=== PATIENT | male | born 1955 | race Caucasian/White ===

== ENCOUNTER 2020-07-30 13:55 | Inpatient (IN) | payer BC ==
[2020-07-30] MEDS ORDERED: HEPARIN SODIUM 1,000 UN/ML (10ML VL) IV ONE ×2 (13:59→14:31)
[2020-07-30] MEDS ORDERED: ATORVASTATIN 80 MG TAB PO STA (14:00)
--- NOTE | 2020-07-30 14:01 | ED ---
Chest Pain HPI - General Stated Complaint: STEMI - History of Present Illness Initial Comments: Michele is a 65yo M who presents to the emergency department today by ambulance for evaluation of chest pain. Patient reports that he was shooting shotgun and then walked away and was resting he began feeling short of breath, sweaty with severe pain in his chest. Ambulance was called, patient received aspirin and nitro with some improvement in his pain. Pre-hospital EKG was consistent with STEMI. He has no history of any cardiac problems. He does have high blood pressure. His primary care is an urgent care in [place]. - Related Data Home Medications Medication Instructions Recorded Confirmed Cholecalciferol [Vitamin D3 (25 50 mcg PO DAILY 07/30/20 07/30/20 Mcg = 1000 Iu)] Levothyroxine Sodium [Synthroid] 112 mcg PO DAILY 07/30/20 07/30/20 Lisinopril [Prinivil] 10 mg PO DAILY 07/30/20 07/30/20 Allergies Allergy/AdvReac Type Severity Reaction Status Date / Time No Known Allergies Allergy Verified 07/30/20 14:25 Review of Systems ROS Statement: Those systems with pertinent positive or pertinent negative responses have been documented in the HPI. ROS Other: All systems not noted in ROS Statement are negative. EKG Findings - EKG Comments: EKG Findings:: EKG is obtained to complaint chest pain, EKG obtained at 1358, rate is 72 rhythm is sinus there is a normal axis, normal intervals, OK 180, QRS 98, QTC 411. There are ST elevations in leads 2, [address] depression in aVL, EKG consistent with STEMI General Exam - General Exam Comments Initial Comments: Physical Exam GENERAL: Pale, diaphoretic, appears uncomfortable HENT: Normocephalic, Atraumatic. EYES: PERRL, EOMI PULMONARY: Unlabored respirations. No audible rales rhonchi or wheezing was noted. CARDIOVASCULAR: RRR Pedal pulses palpable ABDOMEN: Soft and nontender with normal bowel sounds. SKIN: Skin is clear with no lesions or rashes and otherwise unremarkable. : Deferred NEUROLOGIC: Patient is alert and oriented x3. Moving all extremities spontaneously MUSCULOSKELETAL: Normal extremities with adequate strength and full range of motion. No lower extremity swelling or edema. No calf tenderness. PSYCHIATRIC: Normal psychiatric evaluation. Course Vital Signs 07/30/20 07/30/2021 13:56 13:59 14:06 Temperature 97.4 F L Pulse Rate 75 Pulse Rate [ 78 Ios Programmer ] Respiratory 18 18 Rate Blood Pressure 126/99 O2 Sat by Pulse 98 Oximetry Chest Pain MDM - MDM Prehospital EKG was faxed to us Prehospital EKG with ST elevations in 23 aVF depression and aVL and V2 this is concerning for STEMI STEMI activation was called prior to patient's arrival she care was discussed with Dr. Bryant who is in route to the hospital with plan for medical laboratory scientist intervention Arrival the patient appeared pale and diaphoretic he appeared quite uncomfortable repeat EKG again confirms STEMI Dr. Bryant and agreement plan to take patient medical laboratory scientist She care was discussed with on-call medicine team [facility] who accepted admission Disposition Clinical Impression: STEMI (ST elevation myocardial infarction) Disposition: ADMITTED IP TO THIS HOSP Condition: Serious Is patient prescribed a controlled substance at d/c from ED?: No
[2020-07-30 14:11] LABS: Basophils # (A) 0.1 k/uL (0-0.2); Basophils % (A) 1 %; Eosinophils # (A) 0.1 k/uL (0-0.7); Eosinophils % (A) 1 %; HCT 49.8 % (39.0-53.0); HGB 17.7 gm/dL (13.0-17.5); Lymphocytes # (A) 1.8 k/uL (1.0-4.8); Lymphocytes % (A) 19 %; MCHC 35.6 g/dL (31.0-37.0); MCV 84.3 fL (80.0-100.0); Mean Platelet Volume 7.8; Monocytes # (A) 0.8 k/uL (0-1.0); Monocytes % (A) 8 %; Neutrophils # (A) 6.7 k/uL (1.3-7.7); Neutrophils % (A) 69 %; Platelet Count 311 k/uL (150-450); RBC 5.91 m/uL (4.30-5.90); RDW 12.8 % (11.5-15.5); WBC 9.7 k/uL (3.8-10.6)
[2020-07-30] MEDS ORDERED: NALOXONE 0.4 MG/ML 1 ML VIAL IV PRN (14:11)
[2020-07-30] MEDS ORDERED: HYDROmorphone 1 MG/ML 1 ML SYRINGE IVP STA (14:11)
--- NOTE | 2020-07-30 14:15 | XR ---
EXAMINATION TYPE: XR chest 1V portable DATE OF EXAM: 07/30/2020 COMPARISON: NONE HISTORY: Chest pain TECHNIQUE: FINDINGS: There is no heart failure nor confluent pneumonic infiltrate. Costophrenic angles are clear . Bony thorax is intact. IMPRESSION: No active cardiopulmonary disease.
[2020-07-30] MEDS ORDERED: SODIUM CHLORIDE 0.9% 1,000 ML IV ONE (14:16)
[2020-07-30 14:20] LABS: Albumin 4.4 g/dL (3.5-5.0); Calcium 10.3 mg/dL (8.4-10.2); Potassium 3.9 mmol/L (3.5-5.1); Total Bilirubin 0.9 mg/dL (0.2-1.3); Total Protein 7.2 g/dL (6.3-8.2)
[2020-07-30] MEDS ORDERED: VERAPAMIL 2.5 MG/ML 2 ML AMP ONE (14:21)
[2020-07-30] MEDS ORDERED: LIDOCAINE 1% INJ 10MG/ML (20 ML MDV) ONE (14:21)
[2020-07-30] MEDS ORDERED: LIDOCAINE 1% INJ 10MG/ML (20 ML MDV) SQ ONE (14:25)
[2020-07-30] MEDS ORDERED: VERAPAMIL SYRINGE (5 MG/10 ML) INTRAARTER ONE (14:28)
[2020-07-30] MEDS ORDERED: HEPARIN SODIUM 1,000 UN/ML (10ML VL) ONE (14:31)
[2020-07-30] MEDS ORDERED: TICAGRELOR 90 MG TAB ONE (14:31)
[2020-07-30] MEDS ORDERED: TICAGRELOR 90 MG TAB PO ONE (14:33)
[2020-07-30 14:40] LABS: INR 1.1 (<1.2); Partial Thromboplastin Time 22.8 sec (22.0-30.0); Prothrombin Time 11.8 sec (9.0-12.0)
[2020-07-30] MEDS ORDERED: MIDAZOLAM 2 MG/2 ML VIAL IV ONE (14:43)
[2020-07-30] MEDS ORDERED: IOPAMIDOL-370 125ML BTL INJ ONE (14:52)
[2020-07-30] MEDS ORDERED: IOPAMIDOL-370 100ML BTL INJ ONE ×2 (15:10)
[2020-07-30] MEDS ORDERED: RX INFO: IV CONTRAST WAS GIVEN 1 EACH MISC MISCELLANE PRN (15:29)
[2020-07-30] MEDS ORDERED: ATROPINE SULFATE 0.1 MG/ML 10ML SYRINGE IV PRN (15:29)
[2020-07-30] MEDS ORDERED: NITROGLYCERIN SL TABS 0.4 MG TAB SUBLINGUAL PRN (15:29)
[2020-07-30] MEDS ORDERED: MAG HYDROX/AL HYDROX/SIMETH 30 ML CUP PO PRN (15:29)
[2020-07-30] MEDS ORDERED: SODIUM CHLORIDE 0.9% 1,000 ML IV SCH (15:30)
[2020-07-30 16:10] LABS: Glucose,Whole Blood 116 mg/dL (75-99)
--- NOTE | 2020-07-30 19:01 | CC ---
CARDIAC CATHETERIZATION REPORT Mr. Sahu 65-year-old male with no prior documented history of coronary artery disease, history of hypertension who presented to the emergency room with an acute episode of chest discomfort with ST-segment elevation involving the inferior leads. In view of that, recommendation was made regarding cardiac catheterization. The procedure as well as the risks and the complications were discussed with the patient who is in full understanding and agreement. PROCEDURE DETAILS: Patient was brought to the cathead operator in the semi-sedated state after receiving fentanyl and Benadryl and achieving moderate conscious sedated state. Using Xylocaine anesthesia and Seldinger technique, a 6-Greek sheath was introduced in the right radial artery. Selective right coronary angiography performed using 6-Greek FR4 guiding catheter. After obtaining images of the right coronary artery and performing angioplasty and stenting, images of the left coronary system were performed using 5- Greek 3.5 bend left Esme catheters. Multiple views of the coronary arteries including hemiaxial views were obtained. Following that, a 5-Greek tight pigtail catheter was introduced into the left ventricle and pressures were calculated. Following that, catheter and sheath were removed. Hemostasis was obtained with deployment of TR band. There was no immediate complication. Patient is returned to his room in stable condition. FINDING: LEFT MAIN: This is a short size vessel, bifurcating into left circumflex, left anterior descending artery, left main artery has no evidence of high-grade stenosis. LEFT ANTERIOR DESCENDING ARTERY: This is a large-sized vessel reaching to the apex. Tapers down distal third, giving rise to 2 diagonal branches. The second one is large in caliber. The left anterior descending artery at the takeoff of the first obtuse marginal branch has a 30 to 40% plaque. After the takeoff of the second diagonal branch has an 80% lesion. The rest of the vessel has no high-grade stenosis. LEFT CIRCUMFLEX: This is a nondominant vessel, large in caliber giving rise to 3 obtuse marginal branches. The 3rd is the largest. After the takeoff of the second obtuse marginal branch, there is a 70% to 80% plaque. The rest of the vessel has intimal disease without any evidence of high-grade stenosis. RIGHT CORONARY ARTERY: This vessel is totally occluded in the proximal mid segment without any evidence of antegrade flow. LEFT VENTRICULOGRAM is not performed. HEMODYNAMICS: There was no gradient across the aortic valve. The left ventricular end-diastolic pressure was 14-18 mmHg. CONCLUSION: 1. Acutely occluded proximal mid segment of the RCA. 2. Significant disease in the mid LAD. 3. Significant disease in the mid left circumflex. RECOMMENDATION: In view of findings and anatomy, I recommend proceeding with angioplasty and stenting of the RCA. The procedure as well as the risks and the complications were discussed with the patient who is in full understanding and agreement. MMMICKEY / MARVINN: [id number] /
--- NOTE | 2020-07-30 19:22 | CONS ---
CONSULTATION Mr. Sahu is a 65-year-old male with no prior documented history of coronary artery disease, history of hypertension who presented to the emergency room with symptoms of chest discomfort. 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 In the emergency room, he continued to have discomfort. He denies any prior similar symptoms. He has no prior history of cardiac disease. He has a history of hypothyroidism and hypertension. He is nondiabetic, nonsmoker. REVIEW OF SYSTEMS: RESPIRATORY system: He denies any recent history of asthma, emphysema or bronchitis. No wheezing. GI system: No recent GI bleeding. No peptic ulcer disease. : No dysuria or hematuria. NERVOUS SYSTEM: No stroke or seizure. PHYSICAL EXAMINATION: He is a 65-year-old male, alert, oriented, in mild discomfort. Heart rate in the 70s. HEAD: Normocephalic. Eyes: Sclerae anicteric. NECK: Good upstroke. No bruit. No jugular venous distention. LUNGS: Clear to auscultation. HEART: Regular rate and rhythm. S1, S2. No S3. No S4. No murmur or rub. ABDOMEN: Soft, nontender. Positive bowel sounds. No organomegaly. EXTREMITIES: No edema. Intact pulses. EKG revealed a sinus mechanism with ST-segment elevation in the inferior leads, 2, 3, and AVF and mild elevation in the anterior precordial leads with ST depression in 1 and aVL. IMPRESSION: 1. Acute inferior myocardial infarction with possible RV infarct. 2. History of hypertension. 3. History of hypothyroidism. RECOMMENDATION: I recommend proceeding with coronary angiography to assess his status and guide his treatment. The rationale behind the procedure as well as risks and complications were discussed with the patient who is in full understanding and agreement. Thank you for this consult. We will follow with you. MMODL / IJN: [id number] /
--- NOTE | 2020-07-30 19:34 | PTCA ---
PERCUTANEOUSTRANS CORORONARY ANGIOGRAPHY Mr. Sahu is a 65-year-old male who presented with an acute inferior myocardial infarction, underwent cardiac catheterization was found to have a totally occluded proximal mid segment of the RCA. In view of that, recommendation made regarding angioplasty and stenting. The procedure as well as the risks and the complications were discussed with the patient who is in full understanding and agreement. PROCEDURE DESCRIPTION: Using the 6-Bur[place]ian FR4 guiding catheter a 0.014 balanced medium weight J-wire with the help of a straight FineCross be used to cross the total occlusion, positioned distally. Following that, the FineCross microcatheter was removed and a 2.5 x 12 mm Trek balloon was advanced and multiple inflations at a maximum of 10 atmospheres were done. Following that, the balloon was removed and a 3.0 x 18 mm Xience Audra stent was deployed and was dilated at 16 atmospheres. Following that, the balloon was removed and a 3.5 x 12 mm Xience Audra stent was deployed proximal to the first one and was dilated at 16 atmospheres. Following that, the balloon was removed and a 3.5 x 12 mm Xience Audra stent was advanced, deployed proximal to the 2nd stent and postdilated to 16 atmospheres. Following that, the balloon was removed and a 3.5 x 15 mm NC Trek balloon was advanced and inflations in the stents were performed at a maximum of 14 atmospheres. After the last inflation, after appropriate wait, the balloon and the guidewire were withdrawn back in the guiding catheter. Images were obtained and repeated. Those images reveal stable successful stenting. At that point, the guiding catheter, the balloon and the guidewire were removed. Images of the left coronary system were performed. Following that, catheter and sheath were removed. Hemostasis was obtained with deployment of TR band. There was no immediate complication. Patient is returned to his room in stable condition. Of note, the patient had resolution of his chest discomfort at the end of the procedure as well as improvement in his EKG changes. He received an additional 3000 units of intravenous heparin, and his ACT was monitored and received an oral loading dose of Brilinta. RESULTS: Successful stenting of the proximal mid segment of the RCA with reduction of stenosis from 100% to 0%. RECOMMENDATION: Patient be continued on aspirin, Brilinta, beta blockers, checo inhibitors and statin. He will be reevaluated at a later time regarding the need to undergo revascularization of his LAD and his left circumflex. Those findings and recommendations were discussed with the patient and his family and they are in full understanding and agreement. EZEQUIEL / DRE: [id number] /
[2020-07-30] MEDS ORDERED: POTASSIUM CHLORIDE ER 20 MEQ TAB.ER PO STA (20:59)
[2020-07-30] MEDS: TICAGRELOR 90 MG TAB PO SCH (21:39)
[2020-07-30] MEDS: METOPROLOL TARTRATE 25 MG TAB PO SCH (21:39)
[2020-07-30] MEDS: ATORVASTATIN 80 MG TAB PO SCH (21:39)
--- NOTE | 2020-07-30 23:32 | P.HPIM ---
History of Present Illness H&P Date: 07/30/20 Chief Complaint: Chest Pain Patient is a 65-year-old male with a known history of hypertension, hypothyroidism, Pericarditis 1999 presents ER by EMS with complaints of chest p ain. 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 Patient states that he became very diaphoretic and chest pain got worse. Bystander asked him if he is doing okay and EMS was called. Patient also felt numbness of the left arm 10 minutes after. EMS EKG showed consistent with STEMI. Patient was immediately transfer red to ER. Denies any complaints of exertional dyspnea recently. No leg swelling. No palpitations. No headache or dizziness or lightheadedness. Patient was initially taken to cardiac catheterization and underwent stenting of the proximal mid segment of the RCA with resolution of stenosis. Currently patient is being monitored in ICU. Laboratory data showed WBC 9.7 hemoglobin 17.7 platelets 311 INR 1.1 sodium 139 potassium 3.9 bicarb is 22 BUN 22 creatinine 1.13 and calcium 10.3 troponin 0 0. 012 and 7.88 and 26.0 COVID-19 PCR not detected. EKG showed ST elevation in the inferior leads II, III and aVF. Review of Systems Constitutional: Patient denies any fever or chills . No generalized weakness or weight loss. Abdomen: Patient denied nausea vomiting and diarrhea and abdominal pain. Cardiovascular: Patient denies any chest pain or short of breath no pal pitations. Respiratory: patient denied any cough or sputum production. No shortness of breath Neurologic: Patient denied any numbness or tingling headache. Musculoskeletal: Patient denies any complaints of joint swelling or deformity. Skin: Negative Psychiatric: Negative Endocrine: No heat or cold intolerance. No recent weight gain. Genitourinary: No dysuria or hematuria. All other 14 point ROS negative except the above Past Medical History Past Medical History: Thyroid Disorder Additional Past Medical History / Comment(s): pericarditis 1999 History of Any Multi-Drug Resistant Organisms: None Reported Past Psychological History: No Psychological Hx Reported Smoking Status: Never smoker Past Alcohol Use History: None Reported Past Drug Use History: None Reported - Past Family History Mother Family Medical History: Congestive Heart Failure (CHF) Medications and Allergies Home Medications Medication Instructions Recorded Confirmed Type Cholecalciferol [Vitamin D3 (25 50 mcg PO DAILY 07/30/20 07/30/20 History Mcg = 1000 Iu)] Levothyroxine Sodium [Synthroid] 112 mcg PO DAILY 07/30/20 07/30/20 History Lisinopril [Prinivil] 10 mg PO DAILY 07/30/20 07/30/20 History Allergies Allergy/AdvReac Type Severity Reaction Status Date / Time No Known Allergies Allergy Verified 07/30/20 14:25 Physical Exam Vitals: Vital Signs Temp Pulse Pulse Resp BP Pulse Ox 07/30/20 14:12 98.3 F 72 18 128/88 98 07/30/20 14:06 18 07/30/20 13:59 78 07/30/20 13:56 97.4 F L 75 18 126/99 98 Intake and Output 07/30/20 07/30/20 07/30/20 06:59 14:59 22:59 Intake Total 350 Balance 350 Intake: IV 350 Other: Weight 101.151 kg PHYSICAL EXAMINATION: Patient is lying in the bed comfortably, no acute distress, awake alert and oriented.. HEENT: Normocephalic. Neck is supple. Pupils reactive. Nostrils clear. Oral cavity is moist. Ears reveal no drainage. Neck reveals no JVD, carotid bruits, or thyromegaly. CHEST EXAMINATION: Trachea is central. Symmetrical expansion. Lung gomez clear to auscultation and percussion. CARDIAC: Normal S1, S2 with no gallops. No murmurs ABDOMEN: Soft. Bowel sounds normal. No organomegaly. No abdominal bruits. Extremities: reveal no edema. No clubbing or cyanosis Neurologically awake, alert, oriented x3 with well-coordinated movements. No focal deficits noted Skin: No rash or skin lesions. Psychiatric: Coperative. Nonsuicidal Musculoskeletal: No joint swelling or deformity. Normal range of motion. Results CBC & Chem 7: 07/30/20 14:00 07/30/20 14:00 Labs: Abnormal Lab Results - Last 24 Hours (Table) 07/30/20 07/30/20 Range/Units 14:00 14:00 RBC 5.91 H (4.30-5.90) m/uL Hgb 17.7 H (13.0-17.5) gm/dL Chloride 108 H (98-107) mmol/L BUN 22 H (9-20) mg/dL Glucose 128 H (74-99) mg/dL Calcium 10.3 H (8.4-10.2) mg/dL Thrombosis Risk Factor Assmnt - DVT/VTE Prophylaxis DVT/VTE Prophylaxis: Pharmacologic Prophylaxis ordered Assessment and Plan Assessment: Acute inferior wall AK status post cardiac catheterization and stent placement ST elevated AK Hypothyroidism Hypertension DVT prophylaxis Heparin subcu Plan: Patient was started on heparin drip and patient was immediately taken to cardiac catheterization. Status post stenting of proximal and mid segment of the RCA. Continue with aspirin, statins and Brilinta and Metorolol. Continue with telemetry monitoring and monitoring the patient ICU. Cardiology is following closely. Time with Patient: Greater than 30
[2020-07-31] MEDS: HEPARIN SODIUM,PORCINE/PF 5,000 UNIT/0.5 ML SYRINGE SQ SCH ×4 (00:05→23:08)
[2020-07-31 04:25] LABS: Basophils # (A) 0.1 k/uL (0-0.2); Basophils % (A) 0 %; Eosinophils # (A) 0.1 k/uL (0-0.7); Eosinophils % (A) 1 %; HCT 49.1 % (39.0-53.0); Lymphocytes # (A) 1.2 k/uL (1.0-4.8); Lymphocytes % (A) 9 %; MCH 28.2 pg (25.0-35.0); MCHC 32.5 g/dL (31.0-37.0); MCV 86.7 fL (80.0-100.0); Mean Platelet Volume 7.9; Monocytes # (A) 0.6 k/uL (0-1.0); Monocytes % (A) 5 %; Neutrophils # (A) 10.8 k/uL (1.3-7.7); Neutrophils % (A) 84 %; Platelet Count 257 k/uL (150-450); RBC 5.66 m/uL (4.30-5.90); RDW 13.5 % (11.5-15.5); WBC 12.8 k/uL (3.8-10.6)
[2020-07-31 04:43] LABS: African American GFR (CKD) >90 (>60 ml/min/1.73 sqM); Anion Gap 4 mmol/L; Blood Urea Nitrogen 18 mg/dL (9-20); Calcium 9.8 mg/dL (8.4-10.2); Carbon Dioxide 22 mmol/L (22-30); Chloride 107 mmol/L (98-107); Glucose 111 mg/dL (74-99); Magnesium 1.9 mg/dL (1.6-2.3); Non-African American GFR(CKD) 89 (>60 ml/min/1.73 sqM); Potassium 4.6 mmol/L (3.5-5.1); Sodium 133 mmol/L (137-145)
[2020-07-31] MEDS: MAGNESIUM SULFATE-D5W PMX 1 GM in DEXTROSE/WATER 1 100ML.BAG IVPB SCH ×2 (05:43→06:49)
[2020-07-31 06:19] LABS: Cholesterol 210 mg/dL (<200); HDL Cholesterol 42 mg/dL (40-60); LDL Cholesterol,Calculated 139 mg/dL (0-99); Triglycerides 147 mg/dL (<150)
[2020-07-31] MEDS: LEVOTHYROXINE 112 MCG TAB PO SCH (06:53)
[2020-07-31] MEDS: ASPIRIN 81 MG PO SCH (08:48)
[2020-07-31] MEDS: TICAGRELOR 90 MG TAB PO SCH ×2 (08:48→20:39)
[2020-07-31] MEDS: lisinopriL 5 MG TAB PO SCH (08:49)
[2020-07-31] MEDS: METOPROLOL TARTRATE 25 MG TAB PO SCH ×2 (08:49→20:39)
--- NOTE | 2020-07-31 10:27 | ECHOF ---
Referral Reason:oh MEASUREMENTS -------- HEIGHT: 172.7 cm WEIGHT: 103.0 kg BP: 101/76 RVIDd: 3.5 cm (< 3.3) IVSd: 1.4 cm (0.6 - 1.1) LVIDd: 4.0 cm (3.9 - 5.3) LVPWd: 1.5 cm (0.6 - 1.1) IVSs: 2.1 cm LVIDs: 2.6 cm LVPWs: 2.0 cm LA Diam: 3.7 cm (2.7 - 3.8) Ao Diam: 3.8 cm (2.0 - 3.7) AV Cusp: 2.5 cm (1.5 - 2.6) MV EXCURSION: 19.089 mm (> 18.000) MV EF SLOPE: 86 mm/s (70 - 150) EPSS: 0.3 cm MV E Evelio: 0.76 m/s MV DecT: 216 ms MV A Evelio: 0.58 m/s MV E/A Ratio: 1.30 RAP: 5.00 mmHg RVSP: 34.47 mmHg FINDINGS -------- Sinus rhythm. This was a technically difficult study with suboptimal apical views. The left ventricular size is normal. There is moderate concentric left ventricular hypertrophy. O verall left ventricular systolic function is low-normal with, an EF between 50 - 55 %. Basal inferi or LV wall motion is hypokinetic. The right ventricle is mildly enlarged. The left atrial size is normal. The right atrium is normal in size. 5.0mg of Lumason was utilized for enhancement of images Interatrial and interventricular septum intact. The aortic valve is trileaflet and appears structurally normal. The mitral valve is normal. Mild tricuspid regurgitation present. There is mild pulmonary hypertension. The right ventricular systolic pressure, as measured by Doppler, is 34.47mmHg. Trace/mild (physiologic) pulmonic regurgitation. The aortic root is dilated measuring 3.8cm. Normal inferior vena cava with normal inspiratory collapse consistent with estimated right atrial pre ssure of 5 mmHg. There is no pericardial effusion. CONCLUSIONS -------- 1. The left ventricular size is normal. 2. There is moderate concentric left ventricular hypertrophy. 3. Overall left ventricular systolic function is low-normal with, an EF between 50 - 55 %. 4. Basal inferior LV wall motion is hypokinetic. 5. The right ventricle is mildly enlarged. 6. 5.0mg of Lumason was utilized for enhancement of images 7. Mild tricuspid regurgitation present. 8. There is mild pulmonary hypertension. 9. The right ventricular systolic pressure, as measured by Doppler, is 34.47mmHg. 10. Trace/mild (physiologic) pulmonic regurgitation. 11. There is no pericardial effusion. CAMERA TUNING ENGINEER: Natalie Mayberry RDCS
--- NOTE | 2020-07-31 11:59 | P.PN ---
Subjective HISTORY OF PRESENTING ILLNESS This is a pleasant 65-year-old male past medical history significant for hypertension and hypothyroidism. He does not follow with a strategic sourcing consultant. Patient presents emergency department with chest pain. He was transient shooting and had associated diaphoresis, nausea, dyspnea. No prior history of cardiac disease, nondiabetic, nonsmoker. Denies alcohol use. EKG revealed sinus mechanism with ST segment elevation in the inferior leads, II, III, and aVF, and mild elevation in marcelo anterior precordial leads with ST depresion in I and aVL. Patient underwent cardiac catheterization and PCI proximal midsegment of the RCA. Cardiac cath also revealed significant disease in the mid LAD and significant disease in the mid left circumflex. Patient is seen and examined and examined at bedside in intensive care unit. Up in the bedside chair, no acute distress. Patient denies chest pain, shortness of breath, palpitations, lightheadedness, dizziness. Laboratory data reviewed, WBC 12.8, hemoglobin 16, platelets 257, sodium 133, potassium 4.6, serum creatinine 0.9, BP 118, triglycerides 147, cholesterol 210, LDL 139, HDL 42, covid-19 negative. Vital signs blood pressure 108/73, heart rate 55, afebrile, maintaining oxygen saturation is 94% on room air. Telemetry tracings indicate sinus mechanism HR 48-60. Currently being maintained on aspirin 81 mg daily, atorvastatin 80 mg nightly, lisinopril 5 mg daily, metoprolol tartrate 25 mg twice a day, Brilinta 90 mg twice a day. PHYSICAL EXAMINATION CONSTITUTIONAL: No apparent distress. HEENT: Head is normocephalic. No JVD. No carotid bruit. CHEST EXAMINATION: Lungs are clear to auscultation. No chest wall tenderness is noted on palpation or with deep breathing. HEART EXAMINATION: Regular rate and rhythm. S1, S2 heard. No murmurs, gallops or rub. ABDOMEN: Soft, nontender. Positive bowel sounds. EXTREMITIES: 2+ peripheral pulses, no lower extremity edema and no calf tenderness. NEUROLOGIC EXAMINATION: Patient is awake, alert and oriented x3. ASSESSMENT STEMI s/p PCI proximal mid segment of RCA Coronary Artery disease History of hypertension History of hypothyroidism PLAN 2D echo ordered- revealed EF between 5055 percent, basal inferior LV wall motion is hypokinetic, RV is mildly enlarged, mild TR, mild pulmonary hypertension, RVSP 34 Continue dual antiplatelet therapy- aspirin and Brilinta Continue statin Continue lisinopril, metoprolol tartrate Cardiac telemetry Patient will be transferring to 3S cardiac unit once bed available. Nurse Practitioner note has been reviewed, I agree with a documented findings and plan of care. Patient was seen and examined. Objective - Vital Signs Vital signs: Vital Signs Temp 98.1 F 07/31/20 08:00 Pulse 55 L 07/31/20 08:00 Resp 18 07/31/20 08:00 BP 108/73 07/31/20 08:00 Pulse Ox 94 L 07/31/20 08:00 Intake & Output 07/30/20 07/31/20 07/31/20 18:59 06:59 18:59 Intake Total 795 300 200 Output Total 150 700 300 Balance 645 -400 -100 Weight 107 kg 103.4 kg Intake: IV 675 300 200 Magnesium Sulfate-D5w Pmx 200 1 gm In Dextrose/Water 1 100ml.bag @ 100 mls/hr IVPB Q1H [facility] Rx#: [id number] Sodium Chloride 0.9% 1, 325 300 000 ml @ 75 mls/hr IV . [id number] [facility] Rx#:[id number] Oral 120 Output: Urine 150 700 300 Other: Voiding Method Urinal Urinal - Labs CBC & Chem 7: 07/31/20 03:58 07/31/20 03:58 Labs: Abnormal Lab Results - Last 24 Hours (Table) 07/30/20 07/30/20 07/30/20 Range/Units 14:00 14:00 16:08 WBC (3.8-10.6) k/uL RBC 5.91 H (4.30-5.90) m/uL Hgb 17.7 H (13.0-17.5) gm/dL Neutrophils # (1.3-7.7) k/uL Sodium (137-145) mmol/L Chloride 108 H (98-107) mmol/L BUN 22 H (9-20) mg/dL Glucose 128 H (74-99) mg/dL POC Glucose (mg/dL) 116 H (75-99) mg/dL Calcium 10.3 H (8.4-10.2) mg/dL Troponin I (0.000-0.034) ng/mL Cholesterol (<200) mg/dL LDL Cholesterol, Calc (0-99) mg/dL 07/30/20 07/30/20 07/31/20 Range/Units 16:52 20:17 03:58 WBC (3.8-10.6) k/uL RBC (4.30-5.90) m/uL Hgb (13.0-17.5) gm/dL Neutrophils # (1.3-7.7) k/uL Sodium 133 L (137-145) mmol/L Chloride (98-107) mmol/L BUN (9-20) mg/dL Glucose 111 H (74-99) mg/dL POC Glucose (mg/dL) (75-99) mg/dL Calcium (8.4-10.2) mg/dL Troponin I 7.880 H* 26.000 H* (0.000-0.034) ng/mL Cholesterol 210 H (<200) mg/dL LDL Cholesterol, Calc 139 H (0-99) mg/dL 07/31/20 Range/Units 03:58 WBC 12.8 H (3.8-10.6) k/uL RBC (4.30-5.90) m/uL Hgb (13.0-17.5) gm/dL Neutrophils # 10.8 H (1.3-7.7) k/uL Sodium (137-145) mmol/L Chloride (98-107) mmol/L BUN (9-20) mg/dL Glucose (74-99) mg/dL POC Glucose (mg/dL) (75-99) mg/dL Calcium (8.4-10.2) mg/dL Troponin I (0.000-0.034) ng/mL Cholesterol (<200) mg/dL LDL Cholesterol, Calc (0-99) mg/dL
[2020-07-31] MEDS: ATORVASTATIN 80 MG TAB PO SCH (20:38)
[2020-08-01] MEDS: ZOLPIDEM 5 MG TAB PO PRN ×2 (01:32→22:28)
[2020-08-01] MEDS: LEVOTHYROXINE 112 MCG TAB PO SCH (06:07)
[2020-08-01] MEDS ORDERED: ASPIRIN 325 MG TAB PO STA (07:52)
[2020-08-01] MEDS ORDERED: ATORVASTATIN 80 MG TAB PO STA (07:52)
[2020-08-01] MEDS ORDERED: SODIUM CHLORIDE 0.9% 1,000 ML in EMPTY BAG 1 BAG IV ONE (07:52)
[2020-08-01] MEDS ORDERED: ALPRAZolam 0.5 MG TAB PO PRN (07:52)
[2020-08-01] MEDS ORDERED: NITROGLYCERIN SL TABS 0.4 MG TAB SUBLINGUAL PRN (07:52)
[2020-08-01] MEDS ORDERED: ALPRAZolam 0.25 MG TAB PO PRN (07:52)
[2020-08-01] MEDS: ASPIRIN 81 MG PO SCH ×2 (07:54→09:17)
[2020-08-01] MEDS: HEPARIN SODIUM,PORCINE/PF 5,000 UNIT/0.5 ML SYRINGE SQ SCH ×3 (09:17→23:13)
[2020-08-01] MEDS: lisinopriL 5 MG TAB PO SCH (09:17)
[2020-08-01] MEDS: TICAGRELOR 90 MG TAB PO SCH ×2 (09:17→22:29)
[2020-08-01] MEDS: METOPROLOL TARTRATE 25 MG TAB PO SCH ×2 (09:17→22:25)
[2020-08-01 10:46] VITALS: BMI 34.7
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
--- NOTE | 2020-08-01 12:37 | P.PN ---
Subjective Progress Note Date: 08/01/20 HISTORY OF PRESENT ILLNESS: This is a 65-year-old male with a history of hypertension and hypothyroidism who did not previously followed with a spinning bath patroller. Patient is admitted to the hospital secondary to STEMI. Patient underwent cardiac catheterization on 07/30/[address] Bryant revealing an acutely occluded proximal mid segment of the RCA, significant disease in the mid LAD, and significant disease in the midleft circumflex. Patient underwent stenting of the RCA. Echocardiogram completed reveals ejection fraction 50-55%, basal inferior LV wall hypokinesis, mild tricuspid regurgitation, and mild pulmonary hypertension. He should examined this morning at the bedside. Patient denies chest pain or pressure. He denies shortness of breath. He states he is not sleeping well because the bed is uncomfortable. Vital signs are stable. PHYSICAL EXAM: VITAL SIGNS: Reviewed. GENERAL: Well-developed in no acute distress. NECK: Supple. No JVD or thyromegaly LUNGS: Respirations even and unlabored. Lungs essentially clear to auscultation bilaterally. HEART: Regular rate and rhythm. S1 and S2 heard. EXTREMITIES: Normal range of motion. No clubbing or cyanosis. Peripheral pulses intact. No lower extremity edema. Right radial cath site with pulse present. ASSESSMENT: STEMI status post PCI to RCA Coronary artery disease Hypertension Hypothyroidism PLAN: Continue dual antiplatelet therapy with aspirin and Brilinta Continue additional cardiac medications including Lipitor, lisinopril, and me toprolol Patient to undergo cardiac cath tomorrow with Dr. Bryant for additional PCI remaining lesions Further recommendations pending patient course Nurse practitioner note has been reviewed by physician. Signing provider agrees with the documented findings, assessment, and plan of care. Objective - Vital Signs Vital signs: Vital Signs Temp 97.7 F 08/01/20 08:00 Pulse 60 08/01/20 08:00 Resp 18 08/01/20 04:00 BP 108/72 08/01/20 08:00 Pulse Ox 97 08/01/20 08:00 Intake & Output 07/31/20 08/01/20 08/01/20 18:59 06:59 18:59 Intake Total 800 240 Output Total 800 200 100 Balance 0 -200 140 Weight 103.5 kg 103.5 kg Intake: IV 200 Magnesium Sulfate-D5w Pmx 200 1 gm In Dextrose/Water 1 100ml.bag @ 100 mls/hr IVPB Q1H [facility] Rx#: [id number] Oral 600 240 Output: Urine 800 200 100 - Labs CBC & Chem 7: 07/31/20 03:58 07/31/20 03:58
[2020-08-01] MEDS: ATORVASTATIN 80 MG TAB PO SCH (22:28)
[2020-08-02] MEDS: LEVOTHYROXINE 112 MCG TAB PO SCH (06:26)
[2020-08-02] MEDS ORDERED: HEPARIN SODIUM,PORCINE 10,000 UNIT in SODIUM CHLORIDE 0.9% 1,000 ML IRRIGATION PRN (07:00)
[2020-08-02] MEDS ORDERED: HEPARIN SODIUM,PORCINE 2,500 UNIT in SODIUM CHLORIDE 0.9% 250 ML IRRIGATION PRN (07:00)
[2020-08-02] MEDS: TICAGRELOR 90 MG TAB PO SCH ×2 (08:42→21:37)
[2020-08-02] MEDS: ASPIRIN 81 MG PO SCH (08:42)
[2020-08-02] MEDS: METOPROLOL TARTRATE 12.5 MG TAB PO SCH ×2 (08:42→21:37)
[2020-08-02] MEDS: lisinopriL 5 MG TAB PO SCH (08:42)
[2020-08-02] MEDS: HEPARIN SODIUM,PORCINE/PF 5,000 UNIT/0.5 ML SYRINGE SQ SCH ×2 (08:42→17:32)
--- NOTE | 2020-08-02 09:27 | P.PN ---
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 Patient is admitted to the hospital secondary to STEMI. Patient underwent cardiac catheterization on 07/30/[address] Bryant revealing an acutely occluded proximal mid segment of the RCA, significant disease in the mid LAD, and significant disease in the midleft circumflex. Patient underwent stenting of the RCA. Echocardiogram completed reveals ejection fraction 50-55%, basal inferior LV wall hypokinesis, mild tricuspid regurgitation, and mild pulmonary hypertension. He should examined this morning at the bedside. Patient denies chest pain or pressure. He denies shortness of breath. He states he is not sleeping well because the bed is uncomfortable. Vital signs are stable. 08/02 Patient seen and examined. No complaints of CP, SOB. Echo with EF 50-55% with basal inferior hypokinesis and mildly dilated aortic root at 3.8cm. PHYSICAL EXAM: VITAL SIGNS: Reviewed. GENERAL: Well-developed in no acute distress. NECK: Supple. No JVD or thyromegaly LUNGS: Respirations even and unlabored. Lungs essentially clear to auscultation bilaterally. HEART: Regular rate and rhythm. S1 and S2 heard. EXTREMITIES: Normal range of motion. No clubbing or cyanosis. Peripheral pulses intact. No lower extremity edema. Right radial cath site with pulse present. ASSESSMENT: STEMI status post PCI to RCA Coronary artery disease Hypertension Hypothyroidism Mild aortic root dilation at 3.8cm by echo PLAN: Continue dual antiplatelet therapy with aspirin and Brilinta Continue additional cardiac medications including Lipitor, lisinopril, and metoprolol Patient to undergo staged PCI with Dr. Bryant Further recommendations pending patient course Objective - Vital Signs Vital signs: Vital Signs Temp 97.9 F 08/02/20 08:40 Pulse 61 08/02/20 08:40 Resp 16 08/02/20 08:40 BP 112/75 08/02/20 08:40 Pulse Ox 95 08/02/20 08:40 Intake & Output 08/01/20 08/02/20 08/02/20 18:59 06:59 18:59 Intake Total 960 Output Total 100 Balance 860 Weight 103.5 kg 100 kg Intake: Oral 960 Output: Urine 100 Other: # Voids 1 1 - Labs CBC & Chem 7: 07/31/20 03:58 07/31/20 03:58
[2020-08-02] MEDS: ATORVASTATIN 80 MG TAB PO SCH (21:37)
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
[2020-08-03] MEDS: HEPARIN SODIUM,PORCINE/PF 5,000 UNIT/0.5 ML SYRINGE SQ SCH ×4 (01:33→23:16)
[2020-08-03] MEDS ORDERED: ASPIRIN 325 MG TAB PO ONE (06:00)
[2020-08-03] MEDS ORDERED: ATORVASTATIN 80 MG TAB PO ONE (06:00)
[2020-08-03] MEDS: LEVOTHYROXINE 112 MCG TAB PO SCH (06:12)
[2020-08-03] MEDS ORDERED: HEPARIN SODIUM 1,000 UN/ML (10ML VL) ONE (07:15)
[2020-08-03] MEDS ORDERED: LIDOCAINE 1% INJ 10MG/ML (20 ML MDV) ONE (07:15)
[2020-08-03] MEDS ORDERED: VERAPAMIL 2.5 MG/ML 2 ML AMP ONE (07:16)
[2020-08-03] MEDS ORDERED: SODIUM CHLORIDE 0.9% 1,000 ML IV ONE (07:38)
[2020-08-03] MEDS ORDERED: fentaNYL (PF) 50 MCG/ML 2 ML AMP ONE (07:39)
[2020-08-03] MEDS ORDERED: fentaNYL (PF) 50 MCG/ML 2 ML AMP IV ONE (07:46)
[2020-08-03] MEDS ORDERED: LIDOCAINE 1% INJ 10MG/ML (20 ML MDV) SQ ONE (07:46)
[2020-08-03] MEDS ORDERED: VERAPAMIL SYRINGE (5 MG/10 ML) INTRAARTER ONE (07:48)
[2020-08-03] MEDS ORDERED: HEPARIN SODIUM 1,000 UN/ML (10ML VL) IV ONE ×2 (08:07→08:09)
[2020-08-03] MEDS ORDERED: NITROGLYCERIN 1000MCG/10ML SYRINGE INTRACORON ONE (08:09)
[2020-08-03] MEDS ORDERED: TICAGRELOR 90 MG TAB ONE (08:14)
[2020-08-03] MEDS ORDERED: TICAGRELOR 90 MG TAB PO ONE (08:15)
[2020-08-03] MEDS ORDERED: IOPAMIDOL-370 125ML BTL INJ ONE (08:21)
[2020-08-03] MEDS ORDERED: IOPAMIDOL-370 100ML BTL INJ ONE (08:30)
[2020-08-03] MEDS ORDERED: ATROPINE SULFATE 0.1 MG/ML 10ML SYRINGE IV PRN (08:44)
[2020-08-03] MEDS ORDERED: ZOLPIDEM 5 MG TAB PO PRN (08:44)
[2020-08-03] MEDS ORDERED: NITROGLYCERIN SL TABS 0.4 MG TAB SUBLINGUAL PRN (08:44)
[2020-08-03] MEDS ORDERED: RX INFO: IV CONTRAST WAS GIVEN 1 EACH MISC MISCELLANE PRN (08:44)
[2020-08-03] MEDS ORDERED: MAG HYDROX/AL HYDROX/SIMETH 30 ML CUP PO PRN (08:44)
[2020-08-03] MEDS ORDERED: SODIUM CHLORIDE 0.9% 1,000 ML IV SCH (08:45)
[2020-08-03] MEDS: TICAGRELOR 90 MG TAB PO SCH ×2 (08:57→20:39)
[2020-08-03] MEDS: ASPIRIN 81 MG PO SCH (09:23)
[2020-08-03] MEDS: lisinopriL 5 MG TAB PO SCH (09:23)
[2020-08-03] MEDS: METOPROLOL TARTRATE 12.5 MG TAB PO SCH ×2 (09:24→20:39)
[2020-08-03 10:39] LABS: Basophils # (A) 0.1 k/uL (0-0.2); Basophils % (A) 1 %; Eosinophils # (A) 0.2 k/uL (0-0.7); Eosinophils % (A) 2 %; HCT 51.3 % (39.0-53.0); HGB 17.9 gm/dL (13.0-17.5); Lymphocytes # (A) 1.3 k/uL (1.0-4.8); Lymphocytes % (A) 11 %; MCH 30.2 pg (25.0-35.0); MCV 86.5 fL (80.0-100.0); Mean Platelet Volume 8.4; Monocytes # (A) 0.5 k/uL (0-1.0); Monocytes % (A) 5 %; Neutrophils # (A) 9.3 k/uL (1.3-7.7); Neutrophils % (A) 81 %; Platelet Count 260 k/uL (150-450); RBC 5.93 m/uL (4.30-5.90); RDW 12.8 % (11.5-15.5); WBC 11.5 k/uL (3.8-10.6)
--- NOTE | 2020-08-03 10:57 | PTCA ---
PERCUTANEOUSTRANS CORORONARY ANGIOGRAPHY Mr. Sahu is a 65-year-old male who presented on the 30 of July with an acute inferior myocardial infarction underwent stenting of his RCA at that time and was found to have significant obstructive disease involving the LAD and left circumflex. In view of that, recommendation was made regarding angioplasty and stenting. The procedure as well as the risks and the complications were discussed with the patient who is in full understanding and agreement. PROCEDURE: Patient was brought to clinical laboratory manager in a fasting semi-sedated state after receiving fentanyl and Benadryl and achieving moderate conscious sedated state. Using Xylocaine anesthesia and Seldinger technique, a 6-Montserratian sheath was introduced in the left radial artery. Left coronary angiography performed with 6-Montserratian 3.75 EBU guiding catheter and after cannulating the left main a 0.014 balanced medium weight J-wire was advanced across the LAD and positioned distally. Subsequently a 2.5 x 15 mm Xience Audra stent was advanced, deployed and post dilated at 16 atmospheres. After appropriate wait, the balloon and the guidewire were withdrawn back in the guiding catheter. Images were obtained, repeated. Those images reveal stable successful stenting. At that point, the wire was introduced in the distal left circumflex and a 3.5 x 18 mm Xience Audra stent was advanced, deployed and post dilated at 16 atmospheres. After the last inflation, after appropriate wait, the balloon and the guidewire were withdrawn back in the guiding catheter. Images were obtained, repeated. Those images reveal stable successful stenting. At that point, the guiding catheter, the balloon and the guidewire were removed. The sheath was removed. Hemostasis was obtained with deployment of TR band. There was no immediate complication. Patient was returned to his room in stable condition. Of note, the patient had no chest discomfort or significant EKG changes with the inflations. He received a total of 7000 units intravenous heparin and his ACT was followed. He was continued on Brilinta. RESULTS: 1. Successful stenting of the mid LAD with reduction of stenosis from 70% to 0%. 2. Successful stenting of the mid left circumflex with reduction of stenosis from 70% to 0%. RECOMMENDATION: Patient will be continued on aspirin, Brilinta, beta nicholas, ESMER inhibitor, statin. The importance of dual antiplatelet treatment were discussed with the patient and he is in full understanding and agreement. Duration of sedation is 45 minutes. MMODL / IJN: [id number] / MTDD
[2020-08-03 12:23] LABS: Calcium 10.2 mg/dL (8.4-10.2); Potassium 4.5 mmol/L (3.5-5.1)
[2020-08-03] MEDS: ATORVASTATIN 80 MG TAB PO SCH (20:39)
[2020-08-04] MEDS: LEVOTHYROXINE 112 MCG TAB PO SCH (06:15)
[2020-08-04 07:45] VITALS: BP 122/81; PULSE 61; RESP 18; TEMP 97.9
[2020-08-04] MEDS: lisinopriL 5 MG TAB PO SCH (08:16)
[2020-08-04] MEDS: METOPROLOL TARTRATE 12.5 MG TAB PO SCH (08:16)
[2020-08-04] MEDS: ASPIRIN 81 MG PO SCH (08:16)
[2020-08-04] MEDS: TICAGRELOR 90 MG TAB PO SCH (08:17)
[2020-08-04] MEDS: HEPARIN SODIUM,PORCINE/PF 5,000 UNIT/0.5 ML SYRINGE SQ SCH (08:17)
--- NOTE | 2020-08-04 10:22 | P.PN ---
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 Patient is admitted to the hospital secondary to STEMI. Patient underwent cardiac catheterization on 07/30/[address] Bryant revealing an acutely occluded proximal mid segment of the RCA, significant disease in the mid LAD, and significant disease in the midleft circumflex. Patient underwent stenting of the RCA. Echocardiogram completed reveals ejection fraction 50-55%, basal inferior LV wall hypokinesis, mild tricuspid regurgitation, and mild pulmonary hypertension. He should examined this morning at the bedside. Patient denies chest pain or pressure. He denies shortness of breath. He states he is not sleeping well because the bed is uncomfortable. Vital signs are stable. 08/02 Patient seen and examined. No complaints of CP, SOB. Echo with EF 50-55% with basal inferior hypokinesis and mildly dilated aortic root at 3.8cm. 08/04 Patient seen and examined. Patient underwent successful PCI of the LAD and circumflex yesterday. He denies any chest pain or pressure. He states he has been feeling well. PHYSICAL EXAM: VITAL SIGNS: Reviewed. GENERAL: Well-developed in no acute distress. NECK: Supple. No JVD or thyromegaly LUNGS: Respirations even and unlabored. Lungs essentially clear to auscultation bilaterally. HEART: Regular rate and rhythm. S1 and S2 heard. EXTREMITIES: Normal range of motion. No clubbing or cyanosis. Peripheral pulses intact. No lower extremity edema. Right radial cath site with pulse present. ASSESSMENT: STEMI status post PCI to RCA, LAD and circumflex Coronary artery disease Hypertension Hypothyroidism Mild aortic root dilation at 3.8cm by echo PLAN: Continue dual antiplatelet therapy with aspirin and Brilinta Continue additional cardiac medications including Lipitor, lisinopril, and metoprolol Patient stable for discharge from cardiology standpoint. Follow-up in the outpatient 1 week. Objective - Vital Signs Vital signs: Vital Signs Temp 97.9 F 08/04/20 07:43 Pulse 61 08/04/20 07:43 Resp 18 08/04/20 08:39 BP 122/81 08/04/20 07:43 Pulse Ox 96 08/04/20 04:00 Intake & Output 08/03/20 08/04/20 08/04/20 18:59 06:59 18:59 Intake Total 580 480 180 Output Total 425 Balance 155 480 180 Weight 99 kg Intake: IV 100 Oral 480 480 180 Output: Urine 425 Stool 0 Other: Voiding Method Urinal Toilet Urinal # Voids 0 2 # Bowel Movements 0 - Labs CBC & Chem 7: 08/03/20 09:53 08/03/20 09:53 Labs: Abnormal Lab Results - Last 24 Hours (Table) 08/03/20 08/03/20 Range/Units 09:53 09:53 WBC 11.5 H (3.8-10.6) k/uL RBC 5.93 H (4.30-5.90) m/uL Hgb 17.9 H (13.0-17.5) gm/dL Neutrophils # 9.3 H (1.3-7.7) k/uL Sodium 135 L (137-145) mmol/L BUN 21 H (9-20) mg/dL Glucose 105 H (74-99) mg/dL
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
[2020-08-04 11:42] LABS: Potassium 4.5 mmol/L (3.5-5.1)
== END 2020-08-04 13:34 | disposition home or self-care (01) | DRG 246 ==
LOC: EC 13:55 → 2SICU 14:11 → 3SCARD 07-31 17:35
PROVIDERS: ADMIT Internal Medicine; ATTEND Internal Medicine
PROC: 027035Z Dilation of Coronary Artery, One Artery with Two Drug-eluting Intraluminal Devices, Percutaneous Approach (ICD-10-PCS; principal; 2020-07-30 14:11)
PROC: B2111ZZ Fluoroscopy of Multiple Coronary Arteries using Low Osmolar Contrast (ICD-10-PCS; principal; 2020-07-30 14:11)
PROC: 4A023N7 Measurement of Cardiac Sampling and Pressure, Left Heart, Percutaneous Approach (ICD-10-PCS; principal; 2020-07-30 14:11)
PROC: 027135Z Dilation of Coronary Artery, Two Arteries with Two Drug-eluting Intraluminal Devices, Percutaneous Approach (ICD-10-PCS; 2020-08-03 07:30)
DX: I21.19 ST elevation (STEMI) myocardial infarction involving other coronary artery of inferior wall (principal); I25.10 Atherosclerotic heart disease of native coronary artery without angina pectoris; I25.2 Old myocardial infarction; I10 Essential (primary) hypertension; E03.9 Hypothyroidism, unspecified; F32.9 Major depressive disorder, single episode, unspecified; I27.20 Pulmonary hypertension, unspecified; I77.810 Thoracic aortic ectasia; Z20.822 Contact with and (suspected) exposure to COVID-19; Z79.02 Long term (current) use of antithrombotics/antiplatelets; Z79.82 Long term (current) use of aspirin; Z79.890 Hormone replacement therapy; Z79.899 Other long term (current) drug therapy; Z82.49 Family history of ischemic heart disease and other diseases of the circulatory system
CPT/HCPCS: 36415; 71045; 80048; 80053; 80061; 83735; 84484; 85025; 85347; 85610; 85730; 87635; 93005; 93306; 93458; 96374; 99285

== ENCOUNTER 2020-11-02 07:15 | Day surgery (SDC) | payer BC ==
[2020-11-01 08:24] VITALS: BMI 31.7
[~2020-11-02 07:15] MED LIST: ALPRAZolam 0.25 MG TAB PO PRN; ALPRAZolam 0.5 MG TAB PO PRN; ASPIRIN 325 MG TAB PO ONE; ATORVASTATIN 80 MG TAB PO ONE; HEPARIN SODIUM,PORCINE 10,000 UNIT in SODIUM CHLORIDE 0.9% 1,000 ML IRRIGATION PRN; HEPARIN SODIUM,PORCINE 2,500 UNIT in SODIUM CHLORIDE 0.9% 250 ML IRRIGATION PRN; NITROGLYCERIN SL TABS 0.4 MG TAB SUBLINGUAL PRN; SODIUM CHLORIDE 0.9% 1,000 ML in EMPTY BAG 1 BAG IV ONE
[2020-11-02 08:00] VITALS: RESP 16; TEMP 97.5
[2020-11-02 08:30] LABS: Basophils # (A) 0.1 k/uL (0-0.2); Basophils % (A) 1 %; Eosinophils # (A) 0.2 k/uL (0-0.7); Eosinophils % (A) 3 %; HCT 49.4 % (39.0-53.0); HGB 16.7 gm/dL (13.0-17.5); Lymphocytes # (A) 1.6 k/uL (1.0-4.8); Lymphocytes % (A) 22 %; MCH 29.1 pg (25.0-35.0); MCHC 33.7 g/dL (31.0-37.0); MCV 86.3 fL (80.0-100.0); Monocytes # (A) 0.5 k/uL (0-1.0); Monocytes % (A) 7 %; Neutrophils # (A) 4.8 k/uL (1.3-7.7); Neutrophils % (A) 66 %; Platelet Count 246 k/uL (150-450); RBC 5.73 m/uL (4.30-5.90); RDW 12.8 % (11.5-15.5); WBC 7.3 k/uL (3.8-10.6)
[2020-11-02 08:41] LABS: African American GFR (CKD) >90 (>60 ml/min/1.73 sqM); Anion Gap 8 mmol/L; Blood Urea Nitrogen 19 mg/dL (9-20); Calcium 10.1 mg/dL (8.4-10.2); Carbon Dioxide 22 mmol/L (22-30); Chloride 109 mmol/L (98-107); Glucose 109 mg/dL (74-99); Non-African American GFR(CKD) >90 (>60 ml/min/1.73 sqM); Potassium 4.5 mmol/L (3.5-5.1); Sodium 139 mmol/L (137-145)
[2020-11-02] MEDS ORDERED: VERAPAMIL 2.5 MG/ML 2 ML AMP ONE (09:06)
[2020-11-02] MEDS ORDERED: LIDOCAINE 1% INJ 10MG/ML (20 ML MDV) ONE (09:06)
[2020-11-02] MEDS ORDERED: HEPARIN SODIUM 1,000 UN/ML (10ML VL) ONE (09:07)
[2020-11-02] MEDS ORDERED: fentaNYL (PF) 50 MCG/ML 2 ML AMP ONE (09:07)
[2020-11-02] MEDS ORDERED: fentaNYL (PF) 50 MCG/ML 2 ML AMP IVP ONE (09:41)
[2020-11-02] MEDS ORDERED: LIDOCAINE 1% INJ 10MG/ML (20 ML MDV) SQ ONE (09:43)
[2020-11-02] MEDS ORDERED: VERAPAMIL SYRINGE (5 MG/10 ML) INTRAARTER ONE (09:45)
[2020-11-02] MEDS ORDERED: HEPARIN SODIUM 1,000 UN/ML (10ML VL) IV ONE (09:49)
[2020-11-02] MEDS ORDERED: IOPAMIDOL-370 125ML BTL INJ ONE (09:57)
[2020-11-02] MEDS ORDERED: RX INFO: IV CONTRAST WAS GIVEN 1 EACH MISC MISCELLANE PRN (10:15)
[2020-11-02] MEDS ORDERED: SODIUM CHLORIDE 0.9% 1,000 ML IV SCH (10:15)
--- NOTE | 2020-11-02 13:27 | CC ---
CARDIAC CATHETERIZATION REPORT Mr. Sahu is a 65-year-old male known history of CAD status post myocardial infarction in July of 2020. He underwent stenting of his right coronary artery. At that time, found to have significant obstructive disease involving the LAD and left circumflex, underwent staged angioplasty. Recently, he had vague symptoms of chest discomfort and his stress test revealed evidence of lateral wall ischemia. In view of that, recommendation regarding cardiac catheterization. The procedure as well as the risks and complications were discussed with the patient who is in full understanding and agreement. 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 Using Xylocaine anesthesia and Seldinger technique, a 6-Malagasy sheath was introduced in the right radial artery. Selective right and left coronary angiography performed using 5-Malagasy and 4 bend right Esme and 3.5 bend left Esme catheter. Multiple views of the coronary artery including hemiaxial views were obtained. Following that, a 5-Malagasy tight pigtail catheter was introduced into the left ventricle and pressures were calculated. Following that, catheter and sheath were removed. Hemostasis was obtained with deployment of TR band. There was no immediate complication. Patient is returned to his room in stable condition. Of note, the patient received 5000 units of intravenous heparin, as well as intra-arterial verapamil. FINDINGS: LEFT MAIN: This is a large-sized vessel, bifurcating into left circumflex, left anterior artery, left main coronary artery has no evidence of high-grade stenosis. LEFT ANTERIOR DESCENDING ARTERY: This is a large-sized vessel reaching to the apex with a wraparound apex segment giving rise to a moderately-sized diagonal branch in mid segment. The left anterior descending artery proximally, in the proximal mid segment, has a 20% plaque. The stented segment in the LAD is patent. There is no evidence of in-stent restenosis or high-grade stenosis in the distal vessel. LEFT CIRCUMFLEX: This is a nondominant large-size vessel giving rise to 2 obtuse marginal branch. The stented segment in the mid left circumflex is patent. There was no evidence of significant in-stent restenosis. There is mild plaque distal to the stent. The stent 20%. RIGHT CORONARY ARTERY: This is a large dominant vessel bifurcating into PDA and posterolateral segment branches. The mid segment of the RCA is stented and has no evidence of in-stent restenosis. The distal RCA, prior to the bifurcation, has an eccentric 30-40% plaque without any evidence of high-grade stenosis. LEFT VENTRICULOGRAM: Left ventriculogram was not performed. HEMODYNAMICS: There was no gradient across the aortic valve. The left ventricle end-diastolic pressure was 12-16 mmHg. CONCLUSION: 1. Patent stent to the LAD, left circumflex and right coronary artery. 2. Mild to moderate disease in the distal right coronary artery with mild disease in the circumflex and the LAD. RECOMMENDATION: In view of finding anatomy, recommend continue medical therapy with aggressive coronary risk modifications that have been initiated. I see no evidence of significant progression of disease. Those findings and recommendation were discussed with the patient and his family, who are in full understanding and agreement. PERIOD OF SEDATION: 16 minutes. MMODL / IJN: [id number] /
[2020-11-02 17:21] VITALS: BP 126/81; PULSE 60
[2020-11-02] MEDS ORDERED: ATORVASTATIN 80 MG TAB PO SCH (21:00)
[2020-11-02] MEDS ORDERED: TICAGRELOR 90 MG TAB PO SCH (21:00)
[2020-11-03] MEDS ORDERED: LEVOTHYROXINE 75 MCG TAB PO SCH (06:30)
[2020-11-03] MEDS ORDERED: ASPIRIN 81 MG PO SCH (09:00)
[2020-11-03] MEDS ORDERED: lisinopriL 5 MG TAB PO SCH (09:00)
[2020-11-03] MEDS ORDERED: CHOLECALCIFEROL 25 MCG (1000 IU) TABLET PO SCH (09:00)
== END 2020-11-02 14:05 | disposition home or self-care (01) ==
LOC: CATHCVL 07:15
PROVIDERS: ATTEND Internal Medicine Interventional Cardiology
DX: I25.10 Atherosclerotic heart disease of native coronary artery without angina pectoris (principal); R94.39 Abnormal result of other cardiovascular function study; I10 Essential (primary) hypertension; E78.00 Pure hypercholesterolemia, unspecified; I25.2 Old myocardial infarction; Z95.5 Presence of coronary angioplasty implant and graft; Z79.02 Long term (current) use of antithrombotics/antiplatelets; Z79.82 Long term (current) use of aspirin; Z79.890 Hormone replacement therapy; Z79.899 Other long term (current) drug therapy; Z98.49 Cataract extraction status, unspecified eye
CPT/HCPCS: 93458; 80048; 85025; C1894; C1769; J2001; J3010; J1644; Q9967